=== PATIENT | female | born 1960 | race Caucasian/White ===

== ENCOUNTER 2016-12-23 13:58 | Inpatient (IN) | payer OTHER ==
--- NOTE | ~2016-12-23 | DS ---
Discharge Summary [id number] [place]. [address] NAME: PAYAM MAYFIELD : 62 STATUS : ADM IN [facility]#: [id number] AGE: 56 ADM/REG DATE : 12/23/16 MR#: [id number] REPORT SERV DATE: 01/05/17 DICTATED BY: DIANA BECKER DATE: 01/04/17 REPORT STATUS : Draft TRANSCRIBED BY: MODL DATE: 01/04/17 ADMISSION DATE: 12/23/2016 DISCHARGE DATE: 01/04/2017 DISCHARGE DIAGNOSES: 1. Dysphagia secondary to cough/mucositis, improving. 2. Head and neck cancer. 3. Clostridium difficile positive, diagnosed 12/18/2016, improving. 4. Malnutrition, felt outpatient bolus feeds. 5. Fever unknown intermittent. 6. Deep vein thrombus right lower extremity. IMAGING STUDIES: 1. Chest x-ray, 12/23/2016. Impression: PICC line in good position. No acute process noted. 2. Venous Doppler right lower extremity, 12/23/2016. Impression: Acute clot in right common femoral vein identified. 3. Chest x-ray, 12/26/2016. Impression: Atelectatic changes, mid and lower lung doan possible early pneumonia. 4. Chest x-ray, 12/28/2016. Impression: Perihilar and bibasilar infiltrates and/or atelectasis changes similar to previous study, left worse than right. 5. KUB, 12/28/2016. Impression: Nonspecific gas pattern. No evidence of obstruction. 6. CT of the chest, abdomen, and pelvis, 12/13/2016. Impression: Stable small left pleural effusion with compressive atelectasis and consolidation in the left lower lobe. Additional atelectasis in the posterior aspect of the left upper lobe. Mild straining and infiltration in the mesenteric adjacent to the junction at the descending colon, but the sigmoid colon consistent with acute diverticulitis. No abscess collection or free air are present. No bowel obstruction. Left lower pole with 2 mm obstructing kidney stone. COURSE ON HOSPITAL STAY: Please refer to history and physical dictated by Dr. Lázaro Terrazas on 12/23/2016, for complete admission details. Also, refer to interim note dated 01/02/2017, by Deysi Salazar, nurse practitioner. Chief complaint upon admission was nausea, vomiting, and uncontrolled at home. 1. Mucositis, dysphagia. This was felt secondary to radiation treatment, which was completed prior to this admission. The patient has had complaints of sore throat, pain, dysphagia, increased intensity prior to admission. The patient was started on Diflucan as well as a scopolamine patch, which was then discontinued per Oncology. The patient was started on glycopyrrolate twice daily, which seems to have helped relieve the patient's pain. The patient has continued Mucinex during her hospital stay via PEG to help thin secretions. Pain medication has been via PEG, initially IV, but has transitioned to PEG. 2. Head and neck cancer. The patient is followed by Dr. Anne, [facility]. The patient has completed radiation treatment prior to this admission. We will continue to follow up with Dr. Anne outpatient. Discharge Summary [address] [place]. [address] NAME: PAYAM MAYFIELD : 62 STATUS : ADM IN [facility]#: [id number] AGE: 56 ADM/REG DATE : 12/23/16 MR#: [id number] REPORT SERV DATE: 01/05/17 DICTATED BY: DIANA BECKER DATE: 01/04/17 REPORT STATUS : Draft TRANSCRIBED BY: SUSU DATE: 01/04/17 3. C. diff positive, diagnosed over 12/18/2016. The patient initially had multiple stools upon admission. She has continued her vancomycin 125 mg via PEG every six hours. She has completed her two week dosing. This will be transitioned on her tapering dose. The patient does have a prescription at home. At this time, the patient is having formed stool once daily. 4. Malnutrition secondary to severe mucositis and dysphagia related to radiation therapy. The patient was unable to tolerate bolus feedings at home due to residual and vomiting. The patient has been transitioned to tube feedings via 12-day 18-hour feedings at night. dope maintenance worker has been working with the patient regarding home pump and supplies. The patient has been able to tolerate feedings. 5. Fever intermittent. The patient has had fever on and off throughout the stay. Blood cultures and urine cultures were obtained, which were negative. The patient had possible questionable pneumonia. The patient remains asymptomatic. No antibiotics were started. Antibiotics were avoided due to the patient's history of C. diff. 6. DVT. The patient was diagnosed with a deep vein thrombus in her right upper thigh and the patient was started on Eliquis, which she has been able to tolerate. She will continue Eliquis at home. Prescription has been provided. DISCHARGE PLANNING: The patient will be discharged home in hemodynamically stable condition. She will follow up with Oncology in 7-14 days. She will continue home medications. manager project is working with the patient regarding home health care, physical therapy, tube feedings and supplies. DISCHARGE MEDICATIONS: 1. Norvasc 5 mg one p.o. every morning. 2. Eliquis 5 mg one p.o. twice daily. 3. Glycopyrrolate 1 mg p.o. twice daily. 4. Robitussin 400 mg p.o. every six hours. 5. Reglan 10 mg p.o. every six hours. 6. Protonix 40 mg one p.o. at bedtime. 7. Vancomycin 125 mg every eight hours x7 days, then vancomycin 125 mg p.o. every 12 hours x7 days. 8. Combivent one puff inhaled p.r.n. for shortness of breath. 9. Ativan 0.5 mg via PEG at bedtime p.r.n. 10.Morphine 20 mg via PEG every four hours p.r.n. for pain. 11.Zofran 4 mg per PEG before meals and at bedtime. 12.Compazine 10 mg before meals and at bedtime. 13.Phenergan 25 mg via PEG three times daily p.r.n. for nausea. 14.Zantac 150 mg via PEG p.r.n. for heartburn and indigestion. This discharge took greater than 30 minutes. [facility] Diana Becker NP Discharge Summary [address] [place]. [address] NAME: PAYAM MAYFIELD : 62 STATUS : ADM IN [facility]#: [id number] AGE: 56 ADM/REG DATE : 12/23/16 MR#: [id number] REPORT SERV DATE: 01/05/17 DICTATED BY: DIANA BECKER DATE: 01/04/17 REPORT STATUS : Draft TRANSCRIBED BY: SUSU DATE: 01/04/17 / [id number] CC: MD Norma Franco M.D.
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
--- NOTE | ~2016-12-23 | IDS ---
Interim Discharge Summary [id number] [place]. [address] NAME: PAYAM MAYFIELD : 62 STATUS : ADM IN [facility]#: [id number] AGE: 56 ADM/REG DATE : 12/23/16 MR#: [id number] REPORT SERV DATE: 01/02/17 DICTATED BY: DATE: REPORT STATUS : Draft TRANSCRIBED BY: MODL DATE: 01/02/17 ADMISSION DATE: 12/23/2016 DISCHARGE DATE: DISCHARGE DATE: Within next 24 to 48 hours. Interim summary covers dates of service between 12/23/2016 and 01/02/2017. INTERIM DIAGNOSES: 1. Mucositis/dysphagia. 2. Clostridium diff. 3. Malnutrition. 4. Fever. 5. Deep venous thrombosis. CONSULTATIONS: Arthur Anne MD, [facility]. PERTINENT TESTS AND PROCEDURES: 1. Chest x-ray, 12/23/2016. Impression: PICC line in good position with no acute process, otherwise, demonstrated. 2. Venous Doppler, right lower extremity, 12/23/2016. Impression: Acute clot in the right common femoral vein identified. 3. Chest x-ray, 12/26/2016. Impression: Atelectatic changes, mid and lower lung field, question early pneumonia. 4. Chest x-ray, 12/28/2016. Impression: Perihilar and bibasilar infiltrates and/or atelectatic changes similar to previous study. Left worse than right. 5. KUB, 12/28/2016. Impression: Nonspecific gas pattern. No evidence of obstruction. 6. CT of chest, abdomen, and pelvis, 12/28/2016. Impression:. a. Stable small left pleural effusion with compressive atelectasis and consolidation in the left lower lobe. Additional atelectasis in the posterior aspect of the left upper lobe. b. Mild stranding and inflammation in the mesentery adjacent to the junction at the descending colon, but the sigmoid colon consistent with diverticulitis. No abscess collections or free air are present. No bowel obstruction. c. Left lower pole 2 mm nonobstructing kidney stone. HOSPITAL COURSE: Chief complaint upon admission, nausea and vomiting, uncontrolled at home. Please refer to history and physical dated 12/23/[address] Lázaro Terrazas for complete details of the patient's initial presentation upon admission and health history. 1. Mucositis/dysphagia. This is secondary to radiation treatment that was completed during this admission. The patient is still suffering from sore throat, pain, and dysphagia that has increased in intensity over the past 24 hours. The patient believes this increased throat pain is secondary to harsh coughing to clear thick mucus. Per Oncology, scopolamine patch was discontinued and glycopyrrolate was started twice daily today. The patient will also continue Mucinex scheduled per PEG tube to assist with Interim Discharge Summary [address] [place]. [address] NAME: PAYAM MAYFIELD : 62 STATUS : ADM IN PAT#: [id number] AGE: 56 ADM/REG DATE : 12/23/16 MR#: [id number] REPORT SERV DATE: 01/02/17 DICTATED BY: DATE: REPORT STATUS : Draft TRANSCRIBED BY: MODL DATE: 01/02/17 mucus thinning. We are working to transition to the pain medication per PEG tube only. The patient was currently receiving morphine 8 mg liquid per PEG tube every four hours as needed for pain, however, this was not controlling the patient's symptoms. The patient has now been increased to morphine 20 mg/5 mL solution per PEG tube every four hours as needed for [id number] pain. IV Dilaudid is still provided for severe breakthrough pain, however, the patient is encouraged to wean off IV medication in anticipation of discharge home within the next 24 to 48 hours. The patient has home suction in place to help manage oral secretions. 2. Head and neck cancer. This is managed per Dr. Anne at [facility] The patient has completed radiation therapy during this admission and will continue to slowly recover with curative intent. 3. C. diff. The patient was diagnosed during previous admission on 12/18/2016. The patient's stool has decreased to one to two times per daily. The patient has continued vancomycin 125 mg liquid per PEG tube every six hours. Per Oncology request, continue this medication q.6 hours until discharge and then taper to 125 mg every eight hours x1 week and then 125 mg per PEG tube every [address] Anne will follow up on an outpatient basis to complete extended taper secondary to immunocompromise patient with recent intermittent fevers. The patient has home supply of vancomycin and will not need a prescription. 4. Malnutrition. This is secondary to severe mucositis and dysphagia related to radiation therapy. The patient is outpatient failure bolus tube feeding secondary to a high residual and vomiting. Social Work has been contacted and the patient did qualify for home pump infusion of tube feedings. The patient has been weaned to nocturnal feedings and is tolerating with mild issues to include nausea and feeling of fullness within seven hours of feed. Tube feeding will be managed at night between 12 and 18 hours as patient can tolerate with flushes as ordered. 5. Fever, intermittent. The patient has spiked intermittent fevers throughout this admission with no clear source of infection. There was a question of early pneumonia, however, the patient remains asymptomatic. CT scan of the abdomen on 12/28/2016 indicated possible diverticulitis, however, the patient has been completely asymptomatic. Avoid antibiotic therapy unless definitive source of infection is identified secondary to current treatment for C. diff. 6. DVT. Continue Eliquis. PLAN OF CARE IN PREPARATION FOR DISPOSITION: 1. The patient will need prescription for morphine liquid 20 mg/5 mL upon discharge. The patient is currently requiring 15 mg every four hours to manage [id number]-[id number] mucositis. This dose may need to be titrated up as the patient is weaned off IV Dilaudid. 2. The patient will need to be educated on management of pump-infused tube feedings at home. Goal is to continue nocturnal feedings 12 to 18 hours nightly as the patient can tolerate in addition to recommended free water flushes. 3. Social Work is actively working on securing for tube feedings prior to discharge. [facility]USU Interim Discharge Summary [address] [address] NAME: PAYAM MAYFIELD : 62 STATUS : ADM IN [facility]#: [id number] AGE: 56 ADM/REG DATE : 12/23/16 MR#: [id number] REPORT SERV DATE: 01/02/17 DICTATED BY: DATE: REPORT STATUS : Draft TRANSCRIBED BY: SUSU DATE: 01/02/17 ERICA Hernandez / [id number] CC: Ansley Reeder M.D.
[~2016-12-23 13:58] MED LIST: AQUAPHOR TOP; ATV.5 PO; BP MEDICATION; COMBIVENT RESPIM4 GM INH; COMP10B PO; LISINOPRIL; MAGIC MOUTHWASH PO; MARI2.5 PO; MORPHINE S20 MG/5 ML PO; MSCONT15 PO; NEXIUM20 M1 PO; NORCO1 TA1 PO; NORV5 PO; PR25 PO; PROTONIX; SCOPOLAMINE TD; VANCOCIN HCL125 MG PO; ZANTAC150 MG PO; ZOFRAN ODT4 MG PO
[2016-12-23 14:02] LABS: BASOPHILS 1.3 %; BASOPHILS ABSOLUTE 0.12 10/3/uL (0.0-0.16); EOSINOPHILS ABSOLUTE 0.09 10/3/uL (0.0-0.53); ER CBC TAT 0 Hrs 02 Mins; HEMOGLOBIN 10.3 g/dL (12.0-16.0); IMMATURE GRANULOCYTES 4.9 %; IMMATURE GRANULOCYTES ABSOLUTE 0.44 10/3/uL (0.0-0.11); LYMPHOCYTES 10.1 %; LYMPHOCYTES ABSOLUTE 0.91 10/3/uL (0.67-4.30); MEAN CORPUS HGB CONC 32.2 g/dL (32.0-36.0); MEAN CORPUSCULAR HEMOGLOB 27.6 pg (26.0-34.0); MEAN CORPUSCULAR VOLUME 85.8 fL (80-100); MEAN PLATELET VOLUME 10.7 fL (9.2-13.0); MONOCYTES 17.7 %; NEUTROPHILS ABSOLUTE 5.88 10/3/uL (2.02-8.40); RBC DISTRIBUTION WIDTH 17.1 % (12.0-16.0); RED CELL COUNT 3.73 10/6/uL (4.0-5.6)
[2016-12-23 14:03] LABS: PLATELET COUNT 190 10/3/uL (150-400)
[2016-12-23 14:05] LABS: MANUAL DIFF NO %
[2016-12-23 14:14] LABS: INTERNATIONAL NORMAL RATI 1.1 UNITS (-)
[2016-12-23 14:18] LABS: BUN (BLOOD UREA NITROGEN) 16 MG/DL (6-23); CALCIUM, SERUM 8.6 MG/DL (8.5-10.4); CHEST PAIN PROFILE TAT 0 Hrs 18 Mins; CO2 (CARBON DIOXIDE) 27 MMOL/L (24-34); CREATININE 0.82 MG/DL (0.55-1.02); GFR AFRICAN AMERICAN 93 ML/MIN (>=60); GFR NON AFRICAN AMERICAN 81 ML/MIN (>=60); POTASSIUM, SERUM 4.5 MMOL/L (3.5-5.3); TROPONIN I <0.02 NG/ML (<0.05)
[2016-12-23 14:19] LABS: CHLORIDE, SERUM 97 MMOL/L (96-112); GLUCOSE, SERUM 102 MG/DL (60-99); SODIUM, SERUM 133 MMOL/L (135-148)
[2016-12-23 14:29] LABS: ANISOCYTOSIS 1+ (5-10/OIF) (0-5/OIF); PLATELET ESTIMATE ADQ (ADEQUATE)
[2016-12-23] MEDS ORDERED: NEXIUM20 M1 PEG (17:34)
[2016-12-23] MEDS ORDERED: COMBIVENT RESPIM4 GM INH (17:34)
[2016-12-23] MEDS ORDERED: NORV5 PEG (17:34)
[2016-12-23] MEDS ORDERED: ATV.5 PEG (17:35)
[2016-12-23] MEDS ORDERED: ZOFRAN ODT4 MG PEG (17:36)
[2016-12-23] MEDS ORDERED: MORPHINE S20 MG/5 ML PEG (17:36)
[2016-12-23] MEDS ORDERED: COMP10B PEG (17:37)
[2016-12-23] MEDS ORDERED: PR25 PEG (17:37)
[2016-12-23] MEDS ORDERED: ZANTAC150 MG PEG (17:38)
[2016-12-23] MEDS ORDERED: AQUAPHOR TOP (17:39)
[2016-12-23] MEDS ORDERED: SCOPOLAMINE PATCH TOP (17:44)
[2016-12-23] MEDS ORDERED: VANCOMYCIN 125 MG PEG ×3 (17:57→17:58)
[2016-12-24 06:52] LABS: BUN (BLOOD UREA NITROGEN) 19 MG/DL (6-23); CALCIUM, SERUM 9.1 MG/DL (8.5-10.4); CHLORIDE, SERUM 98 MMOL/L (96-112); CO2 (CARBON DIOXIDE) 25 MMOL/L (24-34); CREATININE 0.99 MG/DL (0.55-1.02); GFR AFRICAN AMERICAN 74 ML/MIN (>=60); GFR NON AFRICAN AMERICAN 64 ML/MIN (>=60); GLUCOSE, SERUM 114 MG/DL (60-99); POTASSIUM, SERUM 4.5 MMOL/L (3.5-5.3); SODIUM, SERUM 136 MMOL/L (135-148)
[2016-12-24 07:14] LABS: BASOPHILS 0.3 %; BASOPHILS ABSOLUTE 0.03 10/3/uL (0.0-0.16); EOSINOPHILS 0.5 %; EOSINOPHILS ABSOLUTE 0.05 10/3/uL (0.0-0.53); IMMATURE GRANULOCYTES 2.6 %; IMMATURE GRANULOCYTES ABSOLUTE 0.28 10/3/uL (0.0-0.11); LYMPHOCYTES 11.7 %; LYMPHOCYTES ABSOLUTE 1.28 10/3/uL (0.67-4.30); MEAN CORPUS HGB CONC 33.3 g/dL (32.0-36.0); MEAN CORPUSCULAR HEMOGLOB 27.9 pg (26.0-34.0); MEAN CORPUSCULAR VOLUME 83.6 fL (80-100); MEAN PLATELET VOLUME 10.6 fL (9.2-13.0); MONOCYTES 18.5 %; MONOCYTES ABSOLUTE 2.02 10/3/uL (0.21-1.20); NEUTROPHILS 66.4 %; NEUTROPHILS ABSOLUTE 7.25 10/3/uL (2.02-8.40); RBC DISTRIBUTION WIDTH 17.4 % (12.0-16.0); RED CELL COUNT 3.59 10/6/uL (4.0-5.6); WHITE BLOOD CELLS 10.9 10/3/uL (4.5-10.5)
[2016-12-24 07:24] LABS: MANUAL DIFF NO %; PLATELET COUNT 279 10/3/uL (150-400)
[2016-12-24 09:07] LABS: PROCALCITONIN 0.31 ng/mL (<0.5)
[2016-12-24 14:45] LABS: ASCORBIC ACID (UR NOT ORDER) 20 (NEG); BILIRUBIN, URINE NEGATIVE (NEG); KETONE, URINE TRACE MG/DL (NEG); LEUKOCYTE ESTERASE(NOT OR TRACE (NEG); WBC (NOT ORDERED) (RFLEX) 15 (0-5)
[2016-12-25 10:49] LABS: HEMOGLOBIN 8.2 g/dL (12.0-16.0); MEAN CORPUS HGB CONC 32.8 g/dL (32.0-36.0); MEAN CORPUSCULAR HEMOGLOB 27.7 pg (26.0-34.0); MEAN CORPUSCULAR VOLUME 84.5 fL (80-100); MEAN PLATELET VOLUME 10.3 fL (9.2-13.0); PLATELET COUNT 230 10/3/uL (150-400); RBC DISTRIBUTION WIDTH 17.2 % (12.0-16.0); RED CELL COUNT 2.96 10/6/uL (4.0-5.6); WHITE BLOOD CELLS 8.9 10/3/uL (4.5-10.5)
[2016-12-25 10:50] LABS: MANUAL DIFF YES %
[2016-12-25 11:04] LABS: BUN (BLOOD UREA NITROGEN) 14 MG/DL (6-23); CALCIUM, SERUM 8.2 MG/DL (8.5-10.4); CHLORIDE, SERUM 101 MMOL/L (96-112); CO2 (CARBON DIOXIDE) 26 MMOL/L (24-34); CREATININE 0.69 MG/DL (0.55-1.02); GFR AFRICAN AMERICAN 114 ML/MIN (>=60); GFR NON AFRICAN AMERICAN 98 ML/MIN (>=60); GLUCOSE, SERUM 95 MG/DL (60-99); SODIUM, SERUM 136 MMOL/L (135-148)
[2016-12-25 11:18] LABS: SEGMENTED NEUTROPHIL (0) 54 %; TOTAL NUCLEATED CELLS 100
[2016-12-25 11:19] LABS: ANISOCYTOSIS 1+ (5-10/OIF) (0-5/OIF); BAND NEUTROPHILS 18 %; EOSINOPHILS 2 %; EOSINOPHILS ABSOLUTE (CALC) 0.18 10/3/uL (0.0-0.53); HELMET CELLS OCC (0-2/OIF); LYMPHOCYTES 9 %; MONOCYTES 17 %; MONOCYTES ABSOLUTE (CALC) 1.51 10/3/uL (0.21-1.20); NEUTROPHILS ABSOLUTE (CALC) 6.41 10/3/uL (2.02-8.40); PLATELET ESTIMATE ADQ (ADEQUATE); POLYCHROMASIA 1+ (2-5/OIF) (0-1/OIF); TEARDROP SHAPED RBCS OCC (0-2/OIF); TOXIC GRANULATION 1+; VACUOLATED NEUTROPHILES OCC
[2016-12-25 11:20] LABS: GIANT PLATELET OCC
[2016-12-26 05:18] LABS: BASOPHILS 0.2 %; BASOPHILS ABSOLUTE 0.02 10/3/uL (0.0-0.16); EOSINOPHILS 1.4 %; EOSINOPHILS ABSOLUTE 0.15 10/3/uL (0.0-0.53); HEMATOCRIT 23.9 % (36.0-48.0); HEMOGLOBIN 7.7 g/dL (12.0-16.0); IMMATURE GRANULOCYTES 1.3 %; IMMATURE GRANULOCYTES ABSOLUTE 0.14 10/3/uL (0.0-0.11); LYMPHOCYTES 9.9 %; LYMPHOCYTES ABSOLUTE 1.03 10/3/uL (0.67-4.30); MEAN CORPUS HGB CONC 32.2 g/dL (32.0-36.0); MEAN CORPUSCULAR VOLUME 83.9 fL (80-100); MONOCYTES 16.9 %; MONOCYTES ABSOLUTE 1.76 10/3/uL (0.21-1.20); NEUTROPHILS 70.3 %; NEUTROPHILS ABSOLUTE 7.29 10/3/uL (2.02-8.40); PLATELET COUNT 239 10/3/uL (150-400); RBC DISTRIBUTION WIDTH 17.3 % (12.0-16.0); RED CELL COUNT 2.85 10/6/uL (4.0-5.6); WHITE BLOOD CELLS 10.4 10/3/uL (4.5-10.5)
[2016-12-26 05:22] LABS: MANUAL DIFF NO %
[2016-12-26 05:48] LABS: CALCIUM, SERUM 8.5 MG/DL (8.5-10.4); CHLORIDE, SERUM 101 MMOL/L (96-112); CO2 (CARBON DIOXIDE) 23 MMOL/L (24-34); CREATININE 0.72 MG/DL (0.55-1.02); GFR AFRICAN AMERICAN 109 ML/MIN (>=60); GFR NON AFRICAN AMERICAN 94 ML/MIN (>=60); GLUCOSE, SERUM 94 MG/DL (60-99); SODIUM, SERUM 135 MMOL/L (135-148)
[2016-12-26 05:53] LABS: BUN (BLOOD UREA NITROGEN) 9 MG/DL (6-23)
[2016-12-27 01:53] LABS: BASOPHILS 0.2 %; BASOPHILS ABSOLUTE 0.02 10/3/uL (0.0-0.16); EOSINOPHILS 1.1 %; EOSINOPHILS ABSOLUTE 0.09 10/3/uL (0.0-0.53); HEMATOCRIT 22.4 % (36.0-48.0); HEMATOCRIT 22.9 % (36.0-48.0); HEMOGLOBIN 7.4 g/dL (12.0-16.0); HEMOGLOBIN 7.7 g/dL (12.0-16.0); IMMATURE GRANULOCYTES 0.9 %; IMMATURE GRANULOCYTES 1.3 %; IMMATURE GRANULOCYTES ABSOLUTE 0.08 10/3/uL (0.0-0.11); IMMATURE GRANULOCYTES ABSOLUTE 0.11 10/3/uL (0.0-0.11); LYMPHOCYTES 11.8 %; LYMPHOCYTES 12.6 %; LYMPHOCYTES ABSOLUTE 0.97 10/3/uL (0.67-4.30); LYMPHOCYTES ABSOLUTE 1.09 10/3/uL (0.67-4.30); MANUAL DIFF NO %; MEAN CORPUS HGB CONC 33.6 g/dL (32.0-36.0); MEAN CORPUSCULAR HEMOGLOB 28.2 pg (26.0-34.0); MEAN CORPUSCULAR HEMOGLOB 28.6 pg (26.0-34.0); MEAN CORPUSCULAR VOLUME 85.1 fL (80-100); MEAN CORPUSCULAR VOLUME 85.5 fL (80-100); MEAN PLATELET VOLUME 10.4 fL (9.2-13.0); MONOCYTES 12.8 %; MONOCYTES ABSOLUTE 1.07 10/3/uL (0.21-1.20); MONOCYTES ABSOLUTE 1.11 10/3/uL (0.21-1.20); NEUTROPHILS 72.5 %; NEUTROPHILS 72.6 %; NEUTROPHILS ABSOLUTE 5.96 10/3/uL (2.02-8.40); NEUTROPHILS ABSOLUTE 6.25 10/3/uL (2.02-8.40); PLATELET COUNT 223 10/3/uL (150-400); PLATELET COUNT 236 10/3/uL (150-400); RBC DISTRIBUTION WIDTH 16.8 % (12.0-16.0); RED CELL COUNT 2.62 10/6/uL (4.0-5.6); RED CELL COUNT 2.69 10/6/uL (4.0-5.6); WHITE BLOOD CELLS 8.2 10/3/uL (4.5-10.5); WHITE BLOOD CELLS 8.6 10/3/uL (4.5-10.5)
[2016-12-27 02:09] LABS: A/G RATIO 0.5 (0.7-1.9); CHLORIDE, SERUM 102 MMOL/L (96-112); GFR AFRICAN AMERICAN 119 ML/MIN (>=60); GFR NON AFRICAN AMERICAN 103 ML/MIN (>=60); GLOBULIN 4.2 G/DL (2.5-4.1); GLUCOSE, SERUM 107 MG/DL (60-99); POTASSIUM, SERUM 3.6 MMOL/L (3.5-5.3); SGOT(AST) 15 U/L (5-40); SGPT(ALT) 14 U/L (5-65); SODIUM, SERUM 137 MMOL/L (135-148); TOTAL BILIRUBIN 0.3 MG/DL (0-1.2); TOTAL PROTEIN 6.2 G/DL (6.0-8.5)
[2016-12-27 02:11] LABS: ALKALINE PHOSPHATASE 107 U/L (45-117); BUN (BLOOD UREA NITROGEN) 5 MG/DL (6-23); CO2 (CARBON DIOXIDE) 30 MMOL/L (24-34)
[2016-12-28 07:50] LABS: INFLUENZA A SCREEN NEGATIVE (NEGATIVE); INFLUENZA B SCREEN NEGATIVE (NEGATIVE)
[2016-12-28 08:11] LABS: BASOPHILS 0.3 %; BASOPHILS ABSOLUTE 0.02 10/3/uL (0.0-0.16); EOSINOPHILS 0.8 %; EOSINOPHILS ABSOLUTE 0.06 10/3/uL (0.0-0.53); IMMATURE GRANULOCYTES 1.5 %; IMMATURE GRANULOCYTES ABSOLUTE 0.12 10/3/uL (0.0-0.11); LYMPHOCYTES 7.3 %; LYMPHOCYTES ABSOLUTE 0.58 10/3/uL (0.67-4.30); MEAN CORPUS HGB CONC 32.9 g/dL (32.0-36.0); MEAN CORPUSCULAR HEMOGLOB 27.4 pg (26.0-34.0); MEAN CORPUSCULAR VOLUME 83.2 fL (80-100); MEAN PLATELET VOLUME 10.1 fL (9.2-13.0); MONOCYTES ABSOLUTE 0.95 10/3/uL (0.21-1.20); NEUTROPHILS 78.1 %; NEUTROPHILS ABSOLUTE 6.18 10/3/uL (2.02-8.40); PLATELET COUNT 272 10/3/uL (150-400); RBC DISTRIBUTION WIDTH 16.6 % (12.0-16.0); WHITE BLOOD CELLS 7.9 10/3/uL (4.5-10.5)
[2016-12-28 08:17] LABS: HEMATOCRIT 29.2 % (36.0-48.0); HEMOGLOBIN 9.6 g/dL (12.0-16.0); MANUAL DIFF NO %; RED CELL COUNT 3.51 10/6/uL (4.0-5.6)
[2016-12-28 08:25] LABS: BUN (BLOOD UREA NITROGEN) 5 MG/DL (6-23); CHLORIDE, SERUM 101 MMOL/L (96-112); CO2 (CARBON DIOXIDE) 26 MMOL/L (24-34); CREATININE 0.54 MG/DL (0.55-1.02); GFR AFRICAN AMERICAN 123 ML/MIN (>=60); GFR NON AFRICAN AMERICAN 106 ML/MIN (>=60); GLUCOSE, SERUM 99 MG/DL (60-99); POTASSIUM, SERUM 3.7 MMOL/L (3.5-5.3); SODIUM, SERUM 139 MMOL/L (135-148)
[2016-12-29 05:35] LABS: ASCORBIC ACID (UR NOT ORDER) NEG (NEG); BILIRUBIN, URINE NEGATIVE (NEG); KETONE, URINE NEGATIVE (NEG); LEUKOCYTE ESTERASE(NOT OR TRACE (NEG); WBC (NOT ORDERED) (RFLEX) 7 (0-5)
[2016-12-29 10:38] LABS: BASOPHILS 0.6 %; BASOPHILS ABSOLUTE 0.03 10/3/uL (0.0-0.16); EOSINOPHILS 1.6 %; EOSINOPHILS ABSOLUTE 0.08 10/3/uL (0.0-0.53); HEMATOCRIT 27.3 % (36.0-48.0); HEMOGLOBIN 8.7 g/dL (12.0-16.0); IMMATURE GRANULOCYTES 2.5 %; IMMATURE GRANULOCYTES ABSOLUTE 0.13 10/3/uL (0.0-0.11); LYMPHOCYTES ABSOLUTE 1.03 10/3/uL (0.67-4.30); MEAN CORPUS HGB CONC 31.9 g/dL (32.0-36.0); MEAN CORPUSCULAR HEMOGLOB 27.8 pg (26.0-34.0); MEAN PLATELET VOLUME 10.4 fL (9.2-13.0); MONOCYTES 8.4 %; MONOCYTES ABSOLUTE 0.43 10/3/uL (0.21-1.20); NEUTROPHILS 66.9 %; NEUTROPHILS ABSOLUTE 3.44 10/3/uL (2.02-8.40); NUCLEATED RED BLOOD CELLS 0.6 /100WBC (0-0); PLATELET COUNT 280 10/3/uL (150-400); RBC DISTRIBUTION WIDTH 16.9 % (12.0-16.0); RED CELL COUNT 3.13 10/6/uL (4.0-5.6); WHITE BLOOD CELLS 5.1 10/3/uL (4.5-10.5)
[2016-12-29 10:42] LABS: MANUAL DIFF NO %; MEAN CORPUSCULAR VOLUME 87.2 fL (80-100)
[2016-12-29 10:54] LABS: CALCIUM, SERUM 8.8 MG/DL (8.5-10.4); CHLORIDE, SERUM 99 MMOL/L (96-112); CO2 (CARBON DIOXIDE) 27 MMOL/L (24-34); CREATININE 0.51 MG/DL (0.55-1.02); GFR AFRICAN AMERICAN 125 ML/MIN (>=60); GFR NON AFRICAN AMERICAN 108 ML/MIN (>=60); GLUCOSE, SERUM 113 MG/DL (60-99); POTASSIUM, SERUM 3.9 MMOL/L (3.5-5.3); SODIUM, SERUM 137 MMOL/L (135-148)
[2016-12-29 10:55] LABS: BUN (BLOOD UREA NITROGEN) 9 MG/DL (6-23)
[2016-12-30 05:45] LABS: BASOPHILS 0.9 %; BASOPHILS ABSOLUTE 0.05 10/3/uL (0.0-0.16); EOSINOPHILS 2.4 %; EOSINOPHILS ABSOLUTE 0.13 10/3/uL (0.0-0.53); HEMATOCRIT 28.8 % (36.0-48.0); HEMOGLOBIN 9.2 g/dL (12.0-16.0); IMMATURE GRANULOCYTES 4.8 %; IMMATURE GRANULOCYTES ABSOLUTE 0.26 10/3/uL (0.0-0.11); LYMPHOCYTES 14.5 %; LYMPHOCYTES ABSOLUTE 0.79 10/3/uL (0.67-4.30); MEAN CORPUS HGB CONC 31.9 g/dL (32.0-36.0); MEAN CORPUSCULAR HEMOGLOB 27.5 pg (26.0-34.0); MEAN CORPUSCULAR VOLUME 86.2 fL (80-100); MEAN PLATELET VOLUME 10.3 fL (9.2-13.0); MONOCYTES 16.4 %; MONOCYTES ABSOLUTE 0.89 10/3/uL (0.21-1.20); NEUTROPHILS ABSOLUTE 3.31 10/3/uL (2.02-8.40); PLATELET COUNT 323 10/3/uL (150-400); RBC DISTRIBUTION WIDTH 16.2 % (12.0-16.0); RED CELL COUNT 3.34 10/6/uL (4.0-5.6); WHITE BLOOD CELLS 5.4 10/3/uL (4.5-10.5)
[2016-12-30 05:52] LABS: MANUAL DIFF NO %
[2016-12-30 05:59] LABS: BUN (BLOOD UREA NITROGEN) 9 MG/DL (6-23); CALCIUM, SERUM 9.2 MG/DL (8.5-10.4); CHLORIDE, SERUM 100 MMOL/L (96-112); CO2 (CARBON DIOXIDE) 28 MMOL/L (24-34); CREATININE 0.57 MG/DL (0.55-1.02); GFR AFRICAN AMERICAN 121 ML/MIN (>=60); GFR NON AFRICAN AMERICAN 104 ML/MIN (>=60); GLUCOSE, SERUM 102 MG/DL (60-99); POTASSIUM, SERUM 3.8 MMOL/L (3.5-5.3); SODIUM, SERUM 137 MMOL/L (135-148)
[2016-12-30 18:37] LABS: BASOPHILS 0.5 %; BASOPHILS ABSOLUTE 0.03 10/3/uL (0.0-0.16); EOSINOPHILS 1.6 %; EOSINOPHILS ABSOLUTE 0.09 10/3/uL (0.0-0.53); HEMOGLOBIN 9.4 g/dL (12.0-16.0); IMMATURE GRANULOCYTES 3.8 %; IMMATURE GRANULOCYTES ABSOLUTE 0.21 10/3/uL (0.0-0.11); LYMPHOCYTES 16.4 %; MANUAL DIFF NO %; MEAN CORPUS HGB CONC 32.4 g/dL (32.0-36.0); MEAN CORPUSCULAR HEMOGLOB 27.5 pg (26.0-34.0); MEAN CORPUSCULAR VOLUME 84.8 fL (80-100); MEAN PLATELET VOLUME 10.3 fL (9.2-13.0); MONOCYTES 20.1 %; NEUTROPHILS 57.6 %; NEUTROPHILS ABSOLUTE 3.15 10/3/uL (2.02-8.40); PLATELET COUNT 336 10/3/uL (150-400); RBC DISTRIBUTION WIDTH 16.3 % (12.0-16.0); RED CELL COUNT 3.42 10/6/uL (4.0-5.6); WHITE BLOOD CELLS 5.5 10/3/uL (4.5-10.5)
[2017-01-01 06:24] LABS: BASOPHILS 0.8 %; BASOPHILS ABSOLUTE 0.04 10/3/uL (0.0-0.16); EOSINOPHILS 3.3 %; EOSINOPHILS ABSOLUTE 0.17 10/3/uL (0.0-0.53); HEMATOCRIT 28.9 % (36.0-48.0); HEMOGLOBIN 9.1 g/dL (12.0-16.0); IMMATURE GRANULOCYTES ABSOLUTE 0.26 10/3/uL (0.0-0.11); LYMPHOCYTES 17.4 %; LYMPHOCYTES ABSOLUTE 0.91 10/3/uL (0.67-4.30); MEAN CORPUS HGB CONC 31.5 g/dL (32.0-36.0); MEAN CORPUSCULAR HEMOGLOB 27.7 pg (26.0-34.0); MEAN PLATELET VOLUME 10.4 fL (9.2-13.0); MONOCYTES 23.3 %; MONOCYTES ABSOLUTE 1.22 10/3/uL (0.21-1.20); NEUTROPHILS 50.2 %; NEUTROPHILS ABSOLUTE 2.63 10/3/uL (2.02-8.40); PLATELET COUNT 374 10/3/uL (150-400); RBC DISTRIBUTION WIDTH 16.7 % (12.0-16.0); RED CELL COUNT 3.29 10/6/uL (4.0-5.6); WHITE BLOOD CELLS 5.2 10/3/uL (4.5-10.5)
[2017-01-01 06:29] LABS: MANUAL DIFF NO %; MEAN CORPUSCULAR VOLUME 87.8 fL (80-100)
[2017-01-01 06:46] LABS: BAND NEUTROPHILS 9 %; BASOPHILS 2 %; EOSINOPHILS 4 %; EOSINOPHILS ABSOLUTE (CALC) 0.21 10/3/uL (0.0-0.53); IMMATURE GRANS ABSOLUTE (CALC) 0.05 10/3/uL (0.0-0.11); LYMPHOCYTES 11 %; LYMPHOCYTES ABSOLUTE (CALC) 0.57 10/3/uL (0.67-4.30); METAMYELOCYTES 1 %; MONOCYTES 15 %; MONOCYTES ABSOLUTE (CALC) 0.78 10/3/uL (0.21-1.20); NEUTROPHILS ABSOLUTE (CALC) 3.48 10/3/uL (2.02-8.40); PLATELET ESTIMATE ADQ (ADEQUATE); RBC MORPHOLOGY NORM (NORMAL); SEGMENTED NEUTROPHIL (0) 58 %; TOTAL NUCLEATED CELLS 100
[2017-01-01 07:19] LABS: CALCIUM, SERUM 8.9 MG/DL (8.5-10.4); CHLORIDE, SERUM 102 MMOL/L (96-112); CO2 (CARBON DIOXIDE) 27 MMOL/L (24-34); CREATININE 0.76 MG/DL (0.55-1.02); GFR AFRICAN AMERICAN 102 ML/MIN (>=60); GFR NON AFRICAN AMERICAN 88 ML/MIN (>=60); GLUCOSE, SERUM 107 MG/DL (60-99); POTASSIUM, SERUM 4.1 MMOL/L (3.5-5.3); SODIUM, SERUM 140 MMOL/L (135-148)
[2017-01-01 07:23] LABS: BUN (BLOOD UREA NITROGEN) 15 MG/DL (6-23)
[2017-01-02 09:00] LABS: BASOPHILS 0.5 %; BASOPHILS ABSOLUTE 0.04 10/3/uL (0.0-0.16); EOSINOPHILS 2.4 %; EOSINOPHILS ABSOLUTE 0.19 10/3/uL (0.0-0.53); HEMATOCRIT 28.5 % (36.0-48.0); IMMATURE GRANULOCYTES 3.9 %; MEAN CORPUS HGB CONC 31.6 g/dL (32.0-36.0); MEAN CORPUSCULAR HEMOGLOB 27.8 pg (26.0-34.0); MEAN PLATELET VOLUME 10.3 fL (9.2-13.0); MONOCYTES 13.1 %; MONOCYTES ABSOLUTE 1.02 10/3/uL (0.21-1.20); NEUTROPHILS 62.1 %; NEUTROPHILS ABSOLUTE 4.83 10/3/uL (2.02-8.40); PLATELET COUNT 389 10/3/uL (150-400); RBC DISTRIBUTION WIDTH 16.6 % (12.0-16.0); RED CELL COUNT 3.24 10/6/uL (4.0-5.6)
[2017-01-02 09:01] LABS: MANUAL DIFF NO %; WHITE BLOOD CELLS 7.8 10/3/uL (4.5-10.5)
[2017-01-02 09:26] LABS: PHOSPHORUS, SERUM 2.8 MG/DL (2.5-4.5)
[2017-01-03 07:20] LABS: BASOPHILS 0.8 %; BASOPHILS ABSOLUTE 0.05 10/3/uL (0.0-0.16); HEMATOCRIT 27.6 % (36.0-48.0); HEMOGLOBIN 8.6 g/dL (12.0-16.0); IMMATURE GRANULOCYTES 3.2 %; IMMATURE GRANULOCYTES ABSOLUTE 0.21 10/3/uL (0.0-0.11); LYMPHOCYTES 19.2 %; LYMPHOCYTES ABSOLUTE 1.27 10/3/uL (0.67-4.30); MEAN CORPUS HGB CONC 31.2 g/dL (32.0-36.0); MEAN CORPUSCULAR HEMOGLOB 27.1 pg (26.0-34.0); MEAN CORPUSCULAR VOLUME 87.1 fL (80-100); MEAN PLATELET VOLUME 10.3 fL (9.2-13.0); MONOCYTES 13.9 %; MONOCYTES ABSOLUTE 0.92 10/3/uL (0.21-1.20); NEUTROPHILS 59.9 %; NEUTROPHILS ABSOLUTE 3.98 10/3/uL (2.02-8.40); PLATELET COUNT 382 10/3/uL (150-400); RBC DISTRIBUTION WIDTH 16.9 % (12.0-16.0); RED CELL COUNT 3.17 10/6/uL (4.0-5.6); WHITE BLOOD CELLS 6.6 10/3/uL (4.5-10.5)
[2017-01-03 07:25] LABS: MANUAL DIFF NO %
[2017-01-04 06:24] LABS: CALCIUM, SERUM 8.7 MG/DL (8.5-10.4); CHLORIDE, SERUM 95 MMOL/L (96-112); CO2 (CARBON DIOXIDE) 31 MMOL/L (24-34); CREATININE 0.79 MG/DL (0.55-1.02); GFR AFRICAN AMERICAN 98 ML/MIN (>=60); GFR NON AFRICAN AMERICAN 84 ML/MIN (>=60); POTASSIUM, SERUM 4.2 MMOL/L (3.5-5.3); SODIUM, SERUM 134 MMOL/L (135-148)
[2017-01-04 06:26] LABS: BUN (BLOOD UREA NITROGEN) 11 MG/DL (6-23); GLUCOSE, SERUM 142 MG/DL (60-99)
[2017-01-04] MEDS ORDERED: ELIQUIS 5 MG TAB5 MG PEG (10:30)
[2017-01-04] MEDS ORDERED: REG PEG (10:33)
[2017-01-04] MEDS ORDERED: PROTONIX PO (10:34)
[2017-01-04] MEDS ORDERED: ROB1T PEG (10:35)
[2017-01-04] MEDS ORDERED: ZOFRAN ODT4 MG PO (10:36)
[2017-01-04] MEDS ORDERED: PR25 PEG (10:37)
[2017-01-04] MEDS ORDERED: GUAIFENESIN PEG (10:38)
[2017-01-05 05:26] LABS: BASOPHILS 0.6 %; BASOPHILS ABSOLUTE 0.04 10/3/uL (0.0-0.16); EOSINOPHILS ABSOLUTE 0.26 10/3/uL (0.0-0.53); HEMATOCRIT 26.6 % (36.0-48.0); HEMOGLOBIN 8.5 g/dL (12.0-16.0); IMMATURE GRANULOCYTES 3.9 %; IMMATURE GRANULOCYTES ABSOLUTE 0.25 10/3/uL (0.0-0.11); LYMPHOCYTES 23.3 %; MEAN CORPUSCULAR HEMOGLOB 27.2 pg (26.0-34.0); MEAN PLATELET VOLUME 10.4 fL (9.2-13.0); MONOCYTES 16.7 %; MONOCYTES ABSOLUTE 1.08 10/3/uL (0.21-1.20); NEUTROPHILS 51.5 %; NEUTROPHILS ABSOLUTE 3.32 10/3/uL (2.02-8.40); PLATELET COUNT 394 10/3/uL (150-400); RBC DISTRIBUTION WIDTH 16.7 % (12.0-16.0); RED CELL COUNT 3.13 10/6/uL (4.0-5.6); WHITE BLOOD CELLS 6.5 10/3/uL (4.5-10.5)
[2017-01-05 05:35] LABS: BUN (BLOOD UREA NITROGEN) 10 MG/DL (6-23); CHLORIDE, SERUM 95 MMOL/L (96-112); CO2 (CARBON DIOXIDE) 31 MMOL/L (24-34); CREATININE 0.71 MG/DL (0.55-1.02); GFR AFRICAN AMERICAN 111 ML/MIN (>=60); GFR NON AFRICAN AMERICAN 96 ML/MIN (>=60); GLUCOSE, SERUM 100 MG/DL (60-99); POTASSIUM, SERUM 4.6 MMOL/L (3.5-5.3); SODIUM, SERUM 136 MMOL/L (135-148)
[2017-01-05 05:36] LABS: MANUAL DIFF NO %
== END 2017-01-05 10:42 | disposition home health service (06) | DRG 157 ==
LOC: ER 13:58 → CDU1 18:42 → 4EA 22:34
PROVIDERS: Emergency Medicine; Hospitalist; Internal Medicine; Nurse Practitioner Adult Health; Nurse Practitioner Family
PROC: 30233N1 Transfusion of Nonautologous Red Blood Cells into Peripheral Vein, Percutaneous Approach (ICD-10-PCS; principal; 2016-12-27)
DX: K12.30 Oral mucositis (ulcerative), unspecified (principal); E43 Unspecified severe protein-calorie malnutrition; A04.7 Enterocolitis due to Clostridium difficile; I82.411 Acute embolism and thrombosis of right femoral vein; J90 Pleural effusion, not elsewhere classified; C76.0 Malignant neoplasm of head, face and neck; I10 Essential (primary) hypertension; Z68.31 Body mass index [BMI] 31.0-31.9, adult
CPT/HCPCS: 36415; 71010; 71250; 74000; 74176; 80048; 80053; 81001; 83605; 83735; 83880; 84100; 84145; 84484; 85025; 85610; 85730; 86850; 86870; 86900; 86901; 86902; 86920; 86922; 87040; 87070; 87205; 87804; 93005; 93971; 96374; 96375; 97162-GP; 99285; A9270-GY; C9113; J1170; J1450; J2405; J2550; J2765; P9016; P9047

== ENCOUNTER 2017-02-03 23:51 | Inpatient (IN) | payer SELFPAY ==
--- NOTE | ~2017-02-03 | HP ---
History And Physical [place] [id number] [facility] [place]. [address] NAME: PAYAM MAYFIELD : 62 STATUS : ADM IN [facility]#: [id number] AGE: 56 ADM/REG DATE : 02/04/17 MR#: [id number] REPORT SERV DATE: 02/04/17 DICTATED BY: AUNG HERNANDEZ DATE: 02/04/17 REPORT STATUS : Draft TRANSCRIBED BY: SUSU DATE: 02/04/17 DATE OF ADMISSION: 02/04/2017 CHIEF COMPLAINT: Hematemesis. HISTORY OF PRESENT ILLNESS: This is a 56 years old female with past medical history of head and neck cancer, status post radiation treatment with dysphagia, status post PEG tube, also recent history of C diff, which the patient completed her oral Vancocin approximately three days ago. The patient was recently discharged from the hospital on 01/04/2017 by Oncology Hospitalist Service, for which at that time, the patient was being treated for nausea, vomiting, as well as ongoing C diff. The patient was being seen by her primary hematology oncologist, Dr. Anne. She developed recurrent nausea and vomiting after discharge and required some IV fluid in clinic and then later on that evening developed recurrent nausea and vomiting that appeared coffee ground with streaks of blood. She has complaints of generalized abdominal pain more so secondary to the vomiting. Also, she continues to have loose stools intermittently/diarrhea with signs of melena intermittently. She has had subjective fever and chills, also continues to have intermittent fevers at home. Her T-max was 101. The patient states that she felt like she was getting better and then developed the hematemesis and come into the emergency department. She is still on her Eliquis for her recent DVT in the right lower extremity diagnosed 12/23/2016. The patient's last dose of Eliquis was in less than 12 hours. She denies any shortness of breath. No chest pain. Last transfusion was in December without any transfusion reactions. REVIEW OF SYSTEMS: Please refer to HPI. PAST MEDICAL HISTORY: Head and neck cancer, status post radiation; dysphasia; C diff diagnosed 12/2016; recent acute right lower extremity DVT, on chronic Eliquis, diagnosed in 12/2016; malnutrition; chronic pain; GERD; renal stone; leukopenia; anemia; and diverticulitis. PAST SURGICAL HISTORY: , hernia repair, renal stone, cholecystectomy, PEG tube placement. FAMILY HISTORY: Breast cancer and colon cancer per chart. SOCIAL HISTORY: No tobacco, alcohol, or illicit drugs. ALLERGIES: SULFA AND NYLON. HOME MEDICATIONS: Please refer to home reconciliation list per pharmacy with Norvasc, Nexium, Combivent, Ativan, morphine, Compazine, Zantac, [id number] Aquaphor, Eliquis, Reglan, Protonix, glycopyrrolate, Zofran, Phenergan, and guaifenesin. PHYSICAL EXAMINATION: VITAL SIGNS: Temp of 97.5; blood pressure 166/83; initial pulse of 120, come down to the History And Physical [address] [address] NAME: PAYAM MAYFIELD : 62 STATUS : ADM IN [facility]#: [id number] AGE: 56 ADM/REG DATE : 02/04/17 MR#: [id number] REPORT SERV DATE: 02/04/17 DICTATED BY: AUNG HERNANDEZ DATE: 02/04/17 REPORT STATUS : Draft TRANSCRIBED BY: SUSU DATE: 02/04/17 upper 90s; respirations of 20, saturating 96%. GENERAL: The patient is alert and oriented x3, currently in no distress. HEENT: Pupils equal, round, and reactive to light. Extraocular muscles are intact. Anicteric sclerae. CARDIOVASCULAR: S1, S2. No appreciated rubs, or gallops. No JVD. Some mild tachycardia. RESPIRATORY: Clear to auscultation bilaterally. No wheezes or crackles. No signs of tachypnea. ABDOMEN: Positive bowel sounds. Soft with some generalized tenderness to palpation. No rebound. PEG tube with coffee-ground substance. EXTREMITIES: 2+ pulse with a trace of edema. NEURO: Cranial nerves 2 through 12, no neuro focal deficits. LABORATORY DATA: Sodium 138, potassium 4.2, chloride of 104, bicarb of 22, BUN of 21, creatinine of 0.68 with a glucose of 161, calcium of 9.3, albumin of 3.5, T bilirubin of 0.4 with an alkaline phosphatase of 88, ALT of 26, AST of 24, white count of 7.1 with a hemoglobin of 11.3, platelet count 297. INR of 1.2. UA, specific gravity of 1.023, moderate amount of leukocyte esterase, no nitrite, and 23 white blood cells. EKG with some sinus tachycardia. No ST elevation. KUB pending. ASSESSMENT AND PLAN: 1. Upper gastrointestinal bleed. 2. Yikmo-br-gruteld deep vein thrombosis diagnosed in 12/2016. 3. History of head and neck cancer. 4. Dysphagia. 5. Recent Clostridium difficile. The patient will be admitted and also admitted to Dr. Lázaro Terrazas and also GI will be consulted. We will continue with IV PPI. The patient will be n.p.o. We will place PEG tube to gravity. Continue with antiemetics and consult hematology oncologist, Dr. Anne, he is well familiar with this patient. Also, Hematology Oncology to determine if the patient requires an IVC filter. However, we will defer this decision to Hematology. Continue with IV fluid hydration. The patient is hemodynamically stable. We will closely monitor with low threshold for IMCU and currently, no hematemesis while in ER at this time. [facility]/MODGrace Aung Hernandez M.D. / [id number] CC: MD Norma Franco M.D. History And Physical [address] [address] NAME: PAYAM MAYFIELD : 62 STATUS : ADM IN [facility]#: [id number] AGE: 56 ADM/REG DATE : 02/04/17 MR#: [id number] REPORT SERV DATE: 02/04/17 DICTATED BY: AUNG HERNANDEZ DATE: 02/04/17 REPORT STATUS : Draft TRANSCRIBED BY: MODL DATE: 02/04/17 MD Duane Dos Santos MD
--- NOTE | ~2017-02-03 | CN ---
Consultation Report [facility] [address] [place]. [address] NAME: PAYAM MAYFIELD : 62 STATUS : ADM IN LOCATED WITHIN [facility]#: [id number] AGE: 56 ADM/REG DATE : 02/04/17 MR#: [id number] REPORT SERV DATE: 02/05/17 DICTATED BY: CHARLEY ESTRADA DATE: 02/04/17 REPORT STATUS : Draft TRANSCRIBED BY: SUSU DATE: 02/04/17 GI CONSULTATION DATE OF CONSULTATION: 02/04/2017 REASON FOR CONSULTATION: Coffee-grounds emesis. HISTORY OF PRESENT ILLNESS: The patient is a 56-year-old female with a past history of tongue cancer, who is status post radiation and chemotherapy. She underwent a gastrostomy tube placement for dysphagia secondary to her cancer and her treatment. She has been having persistent nausea and vomiting ever since she began chemo and radiation. Fortunately, she has completed her chemo and was only able to undergo two courses. She did complete her radiation few weeks ago. She also had a recent episode of C difficile induced diarrhea for which she was on vancomycin. She completed vancomycin approximately four or five days ago. Her diarrhea symptoms have improved greatly. She presented mainly with complaints of nausea and vomiting. Later, the vomiting was coffee-ground in nature. Initially, it was nonbloody. Her stools have not completely returned to normal, they are still soft to loose, but the volume and frequency have diminished greatly since completing her vancomycin treatment. She reports some intermittent fevers at home. She is currently on Eliquis for DVT in the right lower extremity. PAST MEDICAL HISTORY: Significant for head and neck cancer, status post radiation and chemo; dysphagia; recent C difficile diarrhea; right lower extremity DVT, on Eliquis; malnutrition; chronic pain syndrome; GERD; nephrolithiasis; leukopenia; and anemia. PAST SURGICAL HISTORY: , hernia repair, cholecystectomy, and PEG tube placement. FAMILY HISTORY: Colon cancer. SOCIAL HISTORY: No tobacco, alcohol, or illicit drug use. ALLERGIES: SULFA. HOME MEDICATIONS: Include Norvasc, Nexium, Combivent, Ativan, morphine, Compazine, Zantac, Aquaphor, Eliquis, Reglan, Protonix, glycopyrrolate, Zofran, Phenergan, and guaifenesin. REVIEW OF SYSTEMS: As in HPI. Otherwise, currently negative for fevers or myalgias. PHYSICAL EXAMINATION: VITAL SIGNS: Stable. Afebrile. GENERAL: Well-developed, well-nourished female, currently in no acute distress. HEENT: Atraumatic, normocephalic. Anicteric sclerae. NECK: Supple. No lymphadenopathy or JVD. Consultation Report [address] [place]. [address] NAME: PAYAM MAYFIELD : 62 STATUS : ADM IN LOCATED [facility]IN [facility]#: [id number] AGE: 56 ADM/REG DATE : 02/04/17 MR#: [id number] REPORT SERV DATE: 02/05/17 DICTATED BY: CHARLEY ESTRADA DATE: 02/04/17 REPORT STATUS : Draft TRANSCRIBED BY: SUSU DATE: 02/04/17 CARDIOVASCULAR: Regular rate and rhythm without murmurs, rubs, or gallops. LUNGS: Clear to auscultation bilaterally. ABDOMEN: Soft. Positive bowel sounds. No hepatosplenomegaly. EXTREMITIES: No cyanosis, clubbing, or edema. SKIN: Warm and dry. NEURO: Alert and oriented x3. LABORATORY DATA: Lab work reveals a white count of 10.3, hemoglobin is 9.2, platelet count is 252,000. Admission hemoglobin was 11.3. Chemistry reveals a BUN of 18 and creatinine of 0.65. IMPRESSION AND PLAN: Coffee-grounds emesis, query Vidya-Eldridge tear given it occurred after vomiting versus esophagitis and as such, we will proceed with upper endoscopy for complete evaluation. In the meantime, remain on PPI. Eliquis is currently being held. ERIC/SUSU Charley Estrada M.D. / [id number] CC: MD Norma Franco M.D.
--- NOTE | ~2017-02-03 | DS ---
Discharge Summary [facility] [address] [place]. [address] NAME: PAYAM MAYFIELD : 62 STATUS : ADM IN [facility]#: [id number] AGE: 56 ADM/REG DATE : 02/04/17 MR#: [id number] REPORT SERV DATE: 02/05/17 DICTATED BY: SHIRA TERRAZAS DATE: 02/05/17 REPORT STATUS : Draft TRANSCRIBED BY: MODL DATE: 02/05/17 ADMISSION DATE: 02/04/2017 DISCHARGE DATE: 02/05/2017 CHIEF COMPLAINT ON ADMISSION: Hematemesis. DISCHARGE DIAGNOSES: 1. Esophagitis due to chemotherapy. 2. Esophageal stricture due to chemotherapy. 3. Hematemesis due to esophagitis. 4. History of head and neck cancer, status post PEG tube, on tube feeds at home with nocturnal tube feeds. 5. History of recent deep vein thrombosis. 6. Anemia due to chemotherapy. HISTORY OF PRESENT ILLNESS: Please see full H and P by Dr. Safia Alexander for details regarding initial presentation. HOSPITAL COURSE: 1. Hematemesis due to esophagitis. The patient was scoped by Dr. Naqvi with upper GI which showed benign-appearing esophageal stricture which was dilated and LA grade A reflux esophagitis. He recommended increase to b.i.d. PPI dosing with resuming of Eliquis. The patient's hemoglobin is stable from previous admissions at approximate 8.9. Had no further issues and tolerating food. We will discharge her to home with followup with GI. 2. Esophageal stricture due to radiation therapy. The patient to follow up for repeat dilatation in approximately [address] Naqvi's note. 3. History of head and neck cancer with malnutrition, status post PEG tube. Resume tube feeds per previous regimen. 4. Recent DVT. Okay to resume Eliquis per GI after scope. 5. Anemia due to chemotherapy. The patient's hemoglobin is stable at 8.9. Thus, I can tell no transfusions were obtained by the patient. DISPOSITION: Home. Resume previous home health as appropriate. FOLLOWUP: Followup with GI as well as Oncology. HOME MEDICATIONS: Are the same as admission with the exception of increasing Nexium to 40 mg b.i.d. Time spent on this discharge including discussion with patient, nursing, and Dr. Driss is greater than 30 minutes. DNK/MODL Discharge Summary [place] [address] [place]. [address] NAME: PAYAM MAYFIELD : 62 STATUS : ADM IN PAT#: [id number] AGE: 56 ADM/REG DATE : 02/04/17 MR#: [id number] REPORT SERV DATE: 02/05/17 DICTATED BY: SHIRA TERRAZAS DATE: 02/05/17 REPORT STATUS : Draft TRANSCRIBED BY: MODL DATE: 02/05/17 Shira Terrazas MD / [id number] CC: Shira Terrazas MD
--- NOTE | ~2017-02-03 | DS ---
Discharge Summary [place] [address] [facility]. [address] NAME: PAYAM MAYFIELD : 62 STATUS : DIS IN PAT#: [id number] AGE: 56 ADM/REG DATE : 02/04/17 MR#: [id number] REPORT SERV DATE: 02/07/17 DICTATED BY: SHIRA TERRAZAS DATE: 02/06/17 REPORT STATUS : Draft TRANSCRIBED BY: SUSU DATE: 02/06/17 ADMISSION DATE: 02/04/2017 DISCHARGE DATE: 02/06/2017 ADDENDUM: This is an addendum to discharge summary dated 02/05/2017. The patient's discharge date was 02/06/2017. HOSPITAL COURSE: The patient did not discharge yesterday as after lunch, she did feel sick to her stomach. However, overnight she tolerated her food. Today, she is feeling better and she will be discharged home. Follow up with Dr. Anne next week as previously scheduled. The patient has no other needs. Please see discharge summary from yesterday for further details. NINOK/SUSU Shira Terrazas MD / [id number] CC: MD Norma Franco M.D.
--- NOTE | ~2017-02-03 | EGD ---
EGD REPORT [facility] [address] [address] NAME: OLIVIA MAYFIELD : 62 STATUS : ADM IN PAT#: [id number] AGE: 56 ADM/REG DATE : 02/04/17 MR#: [id number] REPORT SERV DATE: 02/04/17 DICTATED BY: CHARLEY ESTRADA DATE: 02/04/17 REPORT STATUS : Draft TRANSCRIBED BY: [facility] DATE: 02/04/17 Endoscopy Center Patient Name: Olivia Mayfield Date of : 1960 Attending MD: CHARLEY ESTRADA MD Procedure Date No Time: 02/04/2017 Procedure: Upper GI endoscopy Indications: Coffee-ground emesis Referring MD: MARIA DEL CARMEN [place] Medicines: Propofol per Anesthesia Complications: No immediate complications. Procedure: Pre-Anesthesia Assessment: - ASA Grade Assessment: III - A patient with severe systemic disease. After obtaining informed consent, the endoscope was passed under direct vision. Throughout the procedure, the patient's blood pressure, pulse, and oxygen saturations were monitored continuously. The GIF [id number] was introduced through the mouth, and advanced to the second part of duodenum. The upper GI endoscopy was accomplished without difficulty. The patient tolerated the procedure well. Findings: A benign-appearing, intrinsic mild stenosis measuring 1 cm (in length) was found at the cricopharyngeus and was traversed. A guidewire was placed and the scope was withdrawn. Dilation was performed with a Savary dilator with mild resistance at 30 Fr. LA Grade A (one or more mucosal breaks less than 5 mm, not extending between tops of 2 mucosal folds) esophagitis with no bleeding was found at the gastroesophageal junction. A small hiatus hernia was present. There was evidence of an intact gastrostomy with a patent G-tube present in the gastric body. This was characterized by healthy appearing mucosa. The examined duodenum was normal. Impression: - Benign-appearing esophageal stricture. Dilated. - LA Grade A reflux esophagitis. - Hiatus hernia. - Intact gastrostomy with a patent G-tube present characterized by healthy appearing mucosa. - Normal examined duodenum. Recommendation: - Increase PPI to bid dosing. - May resume Eliquis. EGD REPORT [address] [address] NAME: OLIVIA MAYFIELD : 62 STATUS : ADM IN [facility]#: [id number] AGE: 56 ADM/REG DATE : 02/04/17 MR#: [id number] REPORT SERV DATE: 02/04/17 DICTATED BY: CHARLEY ESTRADA DATE: 02/04/17 REPORT STATUS : Draft TRANSCRIBED BY: [employer] DATE: 02/04/17 - If dysphagia improves post-dilation, could repeat again in 2-3 wks. Procedure Code(s): --- Professional --- 28037, Esophagogastroduodenoscopy, flexible, transoral; with insertion of guide wire followed by passage of dilator(s) through esophagus over guide wire Diagnosis Code(s): --- Professional --- K22.2, Esophageal obstruction K21.0, Gastro-esophageal reflux disease with esophagitis K44.9, Diaphragmatic hernia without obstruction or gangrene Z93.1, Gastrostomy status K92.0, Hematemesis CPT copyright 2013 [employer]. All rights reserved. The codes documented in this report are preliminary and upon variety saw operator review may be revised to meet current compliance requirements. CHARLEY ESTRADA MD 02/04/2017 9:14 AM This report has been signed electronically. Number of Addenda: 0 Note Initiated On: 02/04/2017 8:55 AM [address] [address]
[2017-02-03 22:21] LABS: BASOPHILS 0.3 %; BASOPHILS ABSOLUTE 0.02 10/3/uL (0.0-0.16); EOSINOPHILS 0.1 %; EOSINOPHILS ABSOLUTE 0.01 10/3/uL (0.0-0.53); ER CBC TAT 0 Hrs 11 Mins; IMMATURE GRANULOCYTES 1.3 %; IMMATURE GRANULOCYTES ABSOLUTE 0.09 10/3/uL (0.0-0.11); LYMPHOCYTES 16.9 %; MEAN CORPUS HGB CONC 32.7 g/dL (32.0-36.0); MEAN CORPUSCULAR HEMOGLOB 29.2 pg (26.0-34.0); MONOCYTES 1.3 %; MONOCYTES ABSOLUTE 0.09 10/3/uL (0.21-1.20); NEUTROPHILS 80.1 %; NEUTROPHILS ABSOLUTE 5.67 10/3/uL (2.02-8.40); PLATELET COUNT 297 10/3/uL (150-400); RBC DISTRIBUTION WIDTH 16.4 % (12.0-16.0); WHITE BLOOD CELLS 7.1 10/3/uL (4.5-10.5)
[2017-02-03 22:22] LABS: HEMATOCRIT 34.6 % (36.0-48.0); HEMOGLOBIN 11.3 g/dL (12.0-16.0); INTERNATIONAL NORMAL RATI 1.2 UNITS (-); MANUAL DIFF NO %; MEAN CORPUSCULAR VOLUME 89.4 fL (80-100); PARTIAL THROMBO TIME 23.3 SEC (22.5-37.2); RED CELL COUNT 3.87 10/6/uL (4.0-5.6)
[2017-02-03 22:30] LABS: A/G RATIO 0.7 (0.7-1.9); ALBUMIN 3.5 G/DL (3.5-5.0); ALKALINE PHOSPHATASE 88 U/L (45-117); BUN (BLOOD UREA NITROGEN) 21 MG/DL (6-23); CALCIUM, SERUM 9.3 MG/DL (8.5-10.4); CHLORIDE, SERUM 104 MMOL/L (96-112); CO2 (CARBON DIOXIDE) 22 MMOL/L (24-34); CREATININE 0.68 MG/DL (0.55-1.02); GFR AFRICAN AMERICAN 114 ML/MIN (>=60); GFR NON AFRICAN AMERICAN 98 ML/MIN (>=60); GLOBULIN 4.8 G/DL (2.5-4.1); GLUCOSE, SERUM 161 MG/DL (60-99); POTASSIUM, SERUM 4.2 MMOL/L (3.5-5.3); SGOT(AST) 24 U/L (5-40); SGPT(ALT) 26 U/L (5-65); SODIUM, SERUM 138 MMOL/L (135-148); TOTAL BILIRUBIN 0.4 MG/DL (0-1.2); TOTAL PROTEIN 8.3 G/DL (6.0-8.5)
[2017-02-03 22:43] LABS: PLATELET ESTIMATE ADQ (ADEQUATE)
[2017-02-03 22:44] LABS: RBC MORPHOLOGY NORM (NORMAL)
[~2017-02-03 23:51] MED LIST changes: +ATV.5 PEG; +COMP10B PEG; +ELIQUIS 5 MG TAB5 MG PEG; +GUAIFENESIN PEG; +MORPHINE S20 MG/5 ML PEG; +NEXIUM20 M1 PEG; +NORV5 PEG; +PR25 PEG; +PROTONIX PO; +REG PEG; +ROB1T PEG; +SCOPOLAMINE PATCH TOP; +VANCOMYCIN 125 MG PEG; +ZANTAC150 MG PEG; +ZOFRAN ODT4 MG PEG
[2017-02-04 06:53] LABS: BASOPHILS 0 %; EOSINOPHILS 0 %; HEMOGLOBIN 9.4 g/dL (12.0-16.0); IMMATURE GRANULOCYTES 0.5 %; IMMATURE GRANULOCYTES ABSOLUTE 0.05 10/3/uL (0.0-0.11); LYMPHOCYTES 16.2 %; LYMPHOCYTES ABSOLUTE 1.67 10/3/uL (0.67-4.30); MEAN CORPUS HGB CONC 33.2 g/dL (32.0-36.0); MEAN CORPUSCULAR HEMOGLOB 29.1 pg (26.0-34.0); MEAN CORPUSCULAR VOLUME 87.6 fL (80-100); MEAN PLATELET VOLUME 11.1 fL (9.2-13.0); MONOCYTES 7.2 %; MONOCYTES ABSOLUTE 0.74 10/3/uL (0.21-1.20); NEUTROPHILS 76.1 %; NEUTROPHILS ABSOLUTE 7.83 10/3/uL (2.02-8.40); PLATELET COUNT 252 10/3/uL (150-400); RBC DISTRIBUTION WIDTH 16.2 % (12.0-16.0); RED CELL COUNT 3.23 10/6/uL (4.0-5.6)
[2017-02-04 06:54] LABS: HEMATOCRIT 28.3 % (36.0-48.0); MANUAL DIFF NO %; WHITE BLOOD CELLS 10.3 10/3/uL (4.5-10.5)
[2017-02-04 06:59] LABS: INTERNATIONAL NORMAL RATI 1.3 UNITS (-); PROTIME (NOT ORD) 15.6 SEC (12.0-14.5)
[2017-02-04 07:13] LABS: BUN (BLOOD UREA NITROGEN) 18 MG/DL (6-23); CALCIUM, SERUM 9.2 MG/DL (8.5-10.4); CHLORIDE, SERUM 108 MMOL/L (96-112); CO2 (CARBON DIOXIDE) 23 MMOL/L (24-34); CREATININE 0.65 MG/DL (0.55-1.02); GFR AFRICAN AMERICAN 116 ML/MIN (>=60); GFR NON AFRICAN AMERICAN 100 ML/MIN (>=60); PHOSPHORUS, SERUM 2.7 MG/DL (2.5-4.5); POTASSIUM, SERUM 3.9 MMOL/L (3.5-5.3); SODIUM, SERUM 140 MMOL/L (135-148)
[2017-02-04 07:15] LABS: GLUCOSE, SERUM 125 MG/DL (60-99)
[2017-02-04 10:58] LABS: HEMATOCRIT 28.4 % (36.0-48.0); HEMOGLOBIN 9.2 g/dL (12.0-16.0)
[2017-02-04] MEDS ORDERED: ALBUTEROL5 INH (14:47)
[2017-02-05 05:26] LABS: BASOPHILS 0.2 %; BASOPHILS ABSOLUTE 0.01 10/3/uL (0.0-0.16); EOSINOPHILS 2.5 %; EOSINOPHILS ABSOLUTE 0.15 10/3/uL (0.0-0.53); HEMOGLOBIN 8.9 g/dL (12.0-16.0); IMMATURE GRANULOCYTES 0.5 %; IMMATURE GRANULOCYTES ABSOLUTE 0.03 10/3/uL (0.0-0.11); LYMPHOCYTES 22.6 %; LYMPHOCYTES ABSOLUTE 1.37 10/3/uL (0.67-4.30); MANUAL DIFF NO %; MEAN CORPUSCULAR HEMOGLOB 29.5 pg (26.0-34.0); MEAN CORPUSCULAR VOLUME 89.4 fL (80-100); MEAN PLATELET VOLUME 11.8 fL (9.2-13.0); MONOCYTES 11.5 %; NEUTROPHILS 62.7 %; NEUTROPHILS ABSOLUTE 3.81 10/3/uL (2.02-8.40); PLATELET COUNT 225 10/3/uL (150-400); RBC DISTRIBUTION WIDTH 16.4 % (12.0-16.0); RED CELL COUNT 3.02 10/6/uL (4.0-5.6); WHITE BLOOD CELLS 6.1 10/3/uL (4.5-10.5)
== END 2017-02-06 13:32 | disposition home or self-care (01) | DRG 918 ==
LOC: ER 23:51 → 7NO 02-04 01:13 → 4EA 02-05 07:32
PROVIDERS: Emergency Medicine; Internal Medicine; Internal Medicine Gastroenterology
PROC: 0DJ08ZZ Inspection of Upper Intestinal Tract, Via Natural or Artificial Opening Endoscopic (ICD-10-PCS; principal; 2017-02-04 09:01)
DX: T45.1X5A Adverse effect of antineoplastic and immunosuppressive drugs, initial encounter (principal); K92.0 Hematemesis; I82.401 Acute embolism and thrombosis of unspecified deep veins of right lower extremity; K22.2 Esophageal obstruction; D62 Acute posthemorrhagic anemia; C01 Malignant neoplasm of base of tongue; D63.0 Anemia in neoplastic disease; I10 Essential (primary) hypertension
CPT/HCPCS: 36415; 74022; 80048; 80053; 83735; 84100; 85014; 85018; 85025; 85610; 85730; 86850; 86870; 86900; 86901; 86902; 86905; 86920; 86922; 93005; 96374; 96375; 99285; A9270-GY; C9113; J2405; J2550; J2765